=== PATIENT | male | born 1985 | race Caucasian/White ===

== ENCOUNTER 2022-03-28 16:26 | Outpatient (REF) | payer OTHER, SELFPAY ==
[2022-03-28 17:25] LABS: Anion Gap 14 (12-20); Blood Urea Nitrogen 17 mg/dL (9-16); Carbon Dioxide 27 mmol/L (22-29); Chloride 102 mmol/L (96-108); Estimated Glomerular Filt Rate > 60; Potassium 4.2 mmol/L (3.3-5.1); Sodium 139 mmol/L (135-145)
== END 2022-03-28 16:27 | disposition home or self-care (01) ==
LOC: HO.LAB 16:26
PROVIDERS: Visit Provider Family Medicine
DX: I10 Essential (primary) hypertension (principal)
CPT/HCPCS: 36415; 80051; 82565; 84520

== ENCOUNTER 2022-09-25 16:10 | Outpatient (REF) | payer OTHER, SELFPAY ==
[2022-09-30 12:49] LABS: Testosterone, Total 247 ng/dL (250-1100)
== END 2022-09-25 16:11 | disposition home or self-care (01) ==
LOC: HO.LAB 16:10
PROVIDERS: PCP Family Medicine; Visit Provider Family Medicine
DX: N52.9 Male erectile dysfunction, unspecified (principal)
CPT/HCPCS: 36415; 84403

== ENCOUNTER 2022-10-08 16:20 | Outpatient (REF) | payer OTHER, SELFPAY ==
[2022-10-08 19:24] LABS: Thyroid Stimulating Hormone 3.09 uIU/mL (0.32-4.0)
[2022-10-11 04:23] LABS: Follicle Stimulating Hormone 3.6 mIU/mL (1.6-8.0); Lutenizing Hormone 3.3 mIU/mL (1.5-9.3)
[2022-10-15 14:24] LABS: Testosterone, Free 61.6 pg/mL (35.0-155.0); Testosterone, Total 260 ng/dL (250-1100)
== END 2022-10-08 16:21 | disposition home or self-care (01) ==
LOC: HO.LAB 16:20
PROVIDERS: PCP Family Medicine; Visit Provider Family Medicine
DX: N52.9 Male erectile dysfunction, unspecified (principal); R86.1 Abnormal level of hormones in specimens from male genital organs; E23.0 Hypopituitarism
CPT/HCPCS: 36415; 83001; 83002; 84146; 84402; 84403; 84443

== ENCOUNTER 2023-06-19 15:46 | Outpatient (REF) | payer OTHER, SELFPAY ==
[2023-06-19 17:06] LABS: Anion Gap 12 (12-20); Blood Urea Nitrogen 20 mg/dL (9-16); Carbon Dioxide 29 mmol/L (22-29); Chloride 102 mmol/L (96-108); Estimated Glomerular Filt Rate > 60; Potassium 4.2 mmol/L (3.3-5.1); Sodium 139 mmol/L (135-145)
== END 2023-06-19 15:47 | disposition home or self-care (01) ==
LOC: HO.LAB 15:46
PROVIDERS: PCP Family Medicine; Visit Provider Family Medicine
DX: I10 Essential (primary) hypertension (principal)
CPT/HCPCS: 36415; 80051; 82565; 84520

== ENCOUNTER 2024-04-07 14:46 | Outpatient (REF) | payer OTHER, SELFPAY ==
[2024-04-07 16:31] LABS: Anion Gap 12 (12-20); Blood Urea Nitrogen 18 mg/dL (9-16); Carbon Dioxide 26 mmol/L (22-29); Chloride 103 mmol/L (96-108); Estimated Glomerular Filt Rate > 60; Potassium 3.8 mmol/L (3.3-5.1); Sodium 137 mmol/L (135-145)
== END 2024-04-07 14:47 | disposition home or self-care (01) ==
LOC: HO.LAB 14:46
PROVIDERS: PCP Family Medicine; Visit Provider Family Medicine
DX: I10 Essential (primary) hypertension (principal)
CPT/HCPCS: 36415; 80051; 82565; 84520